=== PATIENT | female | born 1965 | race American Indian/Alaskan Native ===

== ENCOUNTER 2017-02-22 15:23 | Observation (INO) | payer BC ==
[2017-02-22] MEDS ORDERED: ZOFRAN IV PRN (15:31)
[2017-02-22] MEDS ORDERED: DULCOLAX PR PRN (15:31)
[2017-02-22] MEDS ORDERED: TYLENOL PO PRN (15:31)
[2017-02-22] MEDS ORDERED: MILK OF MAGNESIA PO PRN (15:31)
[2017-02-22] MEDS: MORPHINE IV PRN (18:10)
--- NOTE | 2017-02-22 18:14 | History and Physical Report ---
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 Pt states she has pain with urination to the point she urinated slowly because of the pain. This pain had a sudden onset and has been persistent. No n/v/f/c at this time. She does have a h/o lupus as well as divertilitis. She reports no changes in bowel or urinary habits. She is meonopausal and had blood noted on UA two days ago. Urine cx was done at this time was negative. Pt noted to have pain on exam and does not seem to get relief with otc meds. Will admit at this time for observation, pain management, and CT scan of abdomen and pelvis. Pt has had several CT scans in 2014 for abdominal pain which were negative and only showed calcified fibroids. Vital Signs: Patient Profile: 51 Years Old Female Height: 68 inches (172.72 cm) Weight: 392 pounds (178.18 kg) BMI: 59.60 BSA: 2.72 BP sittin / 90 (left arm) Vitals Entered By: Cayla Glasgow (February 22, 2017 2:57 PM) Current Method of Contraception: None Past History : 4 Term Births: 3 Living Children: 3 Para: 3 Spont. 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 of genital herpes: no Partner hx. 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 (see hpi) Family/Genetic History: other (see hpi) Social history: no significant social history, single Medications and Allergies Allergies Allergy/AdvReac Type Severity Reaction Status Date / Time No Known Allergies Allergy Verified 08/04/14 13:07 Home Medications Medication Instructions Recorded Confirmed Last Taken Type oxyCODONE /ACETAMINOPHEN [Percocet 1 tab PO Q4-6H PRN #16 tablet 08/11/1408/17/14 Rx 5/325 mg] Ciprofloxacin HCl [Ciprofloxacin 1 tab PO BID 08/17/14 08/18/14 08/17/14 History TAB] Fenoprofen Calcium [Nalfon] 1 cap PO DAILY 08/17/14 08/18/14 08/17/14 History Lansoprazole [Prevacid] 1 cap PO DAILY 08/17/14 08/18/14 08/17/14 History Lisinopril/Hydrochlorothiazide 1 tab PO DAILY 08/17/14 08/18/14 08/18/14 History [Lisinopril-Hctz 10-12.5 mg Tab] Ondansetron [Zofran TAB] 1 tab PO PRN PRN 08/17/14 08/18/14 08/17/14 History Tizanidine HCl 1 tab PO BID 08/17/14 08/18/14 08/17/14 History guaiFENesin/DEXTROMETHORPHAN 1 tab PO BID 08/17/14 08/18/14 08/17/14 History [Mucinex DM ER 600-30 mg TAB] metroNIDAZOLE [Flagyl TAB] 1 tab PO BID 08/17/14 08/18/14 08/17/14 History Active Meds: Active Medications Acetaminophen (Tylenol) 650 mg PO Q4H PRN PRN Reason: Pain MILD(1-3)/Fever >100.5/BOYER Acetaminophen/Hydrocodone Bitart (Sheldon 5/325) 2 each PO Q4HR PRN PRN Reason: Pain, Moderate (4-6) Bisacodyl (Dulcolax) 10 mg CA QDAY PRN PRN Reason: Constipation unrelieved by MOM Docusate Sodium (Colace) 100 mg PO BID JESE Magnesium Hydroxide (Milk Of Magnesia) 30 ml PO Q4H PRN PRN Reason: Constipation Morphine Sulfate (Morphine) 2 mg IV Q4H PRN PRN Reason: Pain, Moderate (4-6) Ondansetron HCl (Zofran) 4 mg IV Q8H PRN PRN Reason: N/V unrelieved by Reglan Review of Systems All systems: negative - Physical Exam Cardiovascular: Normal S1, Normal S2 Lungs: Positive: Clear to auscultation, Normal air movement Abdomen: Positive: normal appearance, soft, tenderness (over supra pubic region) . Negative: distention Genitourinary (Female): Positive: normal external genitalia, normal perenium, other (tenderness over bladder) Vulva: both: normal Vagina: Positive: normal moisture Uterus: Positive: other (unable to palpate due to body habitus) Results All other labs normal. Assessment and Plan - Patient Problems (1) Hypertension Current Visit: Yes Status: Acute Qualifiers: Hypertension type: H Plan to address problem: -pt will take home meds. bp slightly elevated in the office. (2) Obesity Current Visit: Yes Status: Acute Qualifiers: Obesity type: O Obesity classification: O Serious obesity comorbidity presence: S Body mass index: B (3) Abdominal pain in female patient Current Visit: No Status: Acute Plan to address problem: -pt has h/o abdominal pain in the past for which she has had work up for.All studies were negative in 2014 which was last studied done in this hospital. -Will allow pt to eat as she is not have nausea or vomiting -CT scan with and w/o contrast of abdomen and pelvis have been ordered. Will f/ u these results. -pain management
[2017-02-22 19:48] LABS: Basophils % (Auto) 1.1 % (0.0-1.8); Eosinophils % (Auto) 2.5 % (0.0-4.3); Hematocrit 39.8 % (30.3-42.9); Mean Corpuscular HGB Conc 33 % (30-34); Mean Corpuscular Hemoglobin 30 pg (28-32); Mean Corpuscular Volume 93 fl (79-97); Platelet Count 300 K/mm3 (140-440); White Blood Count 6.8 K/mm3 (4.5-11.0)
[2017-02-22 19:58] LABS: Alanine Aminotransferase 17 units/L (7-56); Albumin 3.9 g/dL (3.9-5); Albumin/Globulin Ratio 1.1 %; Alkaline Phosphatase 69 units/L (35-129); Anion Gap 17 mmol/L; BUN/Creatinine Ratio 18.88; Blood Urea Nitrogen 17 mg/dL (7-17); Carbon Dioxide 26 mmol/L (22-30); Chloride 100.3 mmol/L (98-107); Glucose 110 mg/dL (65-100); Potassium 3.6 mmol/L (3.6-5.0); Sodium 140 mmol/L (137-145); Total Protein 7.6 g/dL (6.3-8.2)
--- NOTE | 2017-02-22 21:23 | Cat Scan Report ---
FINAL REPORT PROCEDURE: CT ABDOMEN PELVIS WO/W CON TECHNIQUE: Computerized axial tomography of the abdomen and pelvis was performed without contrast followed by computerized axial tomography of the abdomen and pelvis after the IV injection of iodinated nonionic contrast. HISTORY: several abdominal and pelvic pain COMPARISON: No prior studies are available for comparison. FINDINGS: Visualized lower thorax: No significant abnormality. Liver: Diffuse enlargement. Spleen: Normal size and attenuation. Gallbladder and biliary system: Cholecystectomy clips. Pancreas: Normal. Adrenals: Normal. Kidneys: Normal. No stones or hydronephrosis. GI tract: No dilated loops of large or small bowel. Diverticulosis of the colon. Appendix is normal. Lymph nodes and mesentery: Normal. Vasculature: Normal. Bladder: Normal. Reproductive Organs: Calcified uterine fibroids.. Peritoneum: No free fluid. Musculoskeletal structures: No significant abnormality. Degenerative change. Other: None . IMPRESSION: Fibroid uterus. Colonic diverticulosis. No obstruction or abscess. Hepatomegaly. Prior cholecystectomy. No biliary dilatation.
[2017-02-22] MEDS: NORCO 5/325 PO PRN (22:21)
[2017-02-22] MEDS: COLACE PO SCH (22:21)
[2017-02-23] MEDS: MORPHINE IV PRN ×3 (02:07→16:13)
[2017-02-23] MEDS ORDERED: ATARAX PO PRN (08:00)
[2017-02-23] MEDS ORDERED: HCTZ PO SCH (10:00)
[2017-02-23] MEDS ORDERED: NON-FORMULARY (Lansoprazole 30 MG) PO SCH (10:00)
[2017-02-23] MEDS ORDERED: LISINOPRIL PO SCH (10:00)
[2017-02-23] MEDS: COLACE PO SCH ×2 (10:44→23:59)
--- NOTE | 2017-02-23 11:38 | Progress Note ---
Assessment and Plan - Patient Problems (1) Hypertension Current Visit: Yes Status: Acute Qualifiers: Hypertension type: H (2) Obesity Current Visit: Yes Status: Acute Qualifiers: Obesity type: O Obesity classification: O Serious obesity comorbidity presence: S Body mass index: B (3) Abdominal pain in female patient Current Visit: No Status: Acute Plan to address problem: -CT neg -f/u with urology outpt. 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 I d /w pt that she may have severe IC and have provided a referral to see urology. Will take out of work for the next week to allow time for f/u with .If findings are negative, she was advised she will need to f/u with GI. Pt does feel better today. Pain is still present but states she feels better. Pt request d/c in the am instead of today. She is able to be d/c today as she she is stable but rest more time to "rest." Patient reports: appetite normal, voiding normally, pain well controlled, ambulating normally, no nauseated Objective - Vital Signs Latest vital signs: Vital Signs Temp Pulse Resp BP 02/23/17 08:00 98.1 F 89 18 115/66 02/23/17 04:10 98.6 F 71 16 111/71 02/23/17 00:00 98.6 F 69 16 101/77 02/22/17 21:00 98.6 F 82 16 125/62 02/22/17 17:45 98.9 F 89 158/89 Intake and Output 02/22/17 02/23/17 02/23/17 22:59 06:59 14:59 Intake Total 300 850 Balance 300 850 Intake: Oral 250 Intake, Free Water 300 600 Other: Total, Intake Amount 250 Voiding Method Toilet Weight 178.18 kg - Exam Lungs: Present: Normal air movement Abdomen: Present: normal appearance, soft. Absent: distention, tenderness, guarding Extremities: Present: normal. Absent: tenderness, edema - Labs Labs: Abnormal lab results 02/22/17 02/22/17 Range/Units 19:15 19:15 Lymph % (Auto) 35.4 H (13.4-35.0) % Trigg % (Auto) 7.9 H (0.0-7.3) % Glucose 110 H (65-100) mg/dL
--- NOTE | 2017-02-23 11:41 | Discharge Summary ---
Providers - Providers Date of Admission: 02/22/17 17:20 Date of discharge: 02/24/17 Attending physician: CELENA MAGALLANES Primary care physician: CELENA MAGALLANES Hospitalization Reason for admission: other (dysuria/ pelvic pain) Discharge diagnosis: other (dysuria/pelvic pain) Hospital course: Pt admitted for pelvic pain and dysuria. CT scan negative. Pain improve with meds. At this no cause of the pain via studies done.Pt will f/u with urology outpt to r/o severe IC. Referral provided. Pt has long h/o abdominal pain with negative work up. Condition at discharge: Good Disposition: DC-01 TO HOME OR SELFCARE - Discharge Diagnoses (1) Hypertension Status: Acute Qualifiers: Hypertension type: H (2) Obesity Status: Acute Qualifiers: Obesity type: O Obesity classification: O Serious obesity comorbidity presence: S Body mass index: B (3) Abdominal pain in female patient Status: Acute Comment: (the computer would not let me enter just "abdominal pain") Plan - Discharge Medications Prescriptions: Tramadol HCl [traMADol ER 200 MG] 200 mg PO QDAY #30 tab - Provider Discharge Summary Additional instructions: [] Smoking cessation referral if applicable(refer to patient education folder for contact #) [] Refer to [facility]'s [facility] Booklet Call your doctor immediately for: * Fever > 100.5 * Heavy vaginal bleeding ( >1 pad per hour) * Severe persistent headache * Shortness of breath * Reddened, hot, painful area to leg or breast * Drainage or odor from incision. * Keep incision clean and dry at all times and follow doctor's instructions regarding bathing/showering - Follow up plan Follow up: CELENA MAGALLANES MD [Primary Care Provider] - 7 Days
[2017-02-23] MEDS: NORCO 5/325 PO PRN ×2 (12:34→23:58)
[2017-02-24] MEDS: NORCO 5/325 PO PRN (08:49)
[2017-02-24 14:24] VITALS: BP 128/68
== END 2017-02-24 13:45 | disposition home or self-care (01) ==
LOC: 3A 15:23 → UNDOADMOB 15:23 → OB 17:20
PROVIDERS: ADMIT Obstetrics & Gynecology; ATTEND Obstetrics & Gynecology
DX: R10.9 Unspecified abdominal pain (principal); R30.0 Dysuria; I10 Essential (primary) hypertension; E66.9 Obesity, unspecified; Z98.51 Tubal ligation status; Z90.49 Acquired absence of other specified parts of digestive tract
CPT/HCPCS: 36415; 74178; 80053; 85025; 96374; 96375; 96376; G0378; G0379; J2270; J2405; Q9967